=== PATIENT | male | born 2000 | race Caucasian/White ===

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

== ENCOUNTER 2018-09-08 19:11 | Emergency (ER) | payer BC ==
[2018-09-08 19:57] VITALS: BP 127/67
[2018-09-08] MEDS ORDERED: Tetracaine 0.5% OPTH.SOL 4 ML* 1 DROP BTL LEFT EYE ONE (20:20)
--- NOTE | 2018-09-08 20:20 | ED ---
Throat Pain/Nasal Congestion - HPI Summary HPI Summary: pt presents to the for evaluation of his left eye pain. he states that he feels like he has a piece of wood in it. he is not very specific of when this happened. he states that he thinks it happened at work then he said i don't know. he feels like his td is up to date. he denies any blurry vision. - History of Current Complaint Chief Complaint: UCEye Hx Obtained From: Patient Onset/Duration: Sudden Onset Severity: Moderate Associated Signs And Symptoms: Positive: FB Sensation - Allergies/Home Medications Allergies/Adverse Reactions: Allergies Allergy/AdvReac Type Severity Reaction Status Date / Time No Known Allergies Allergy Verified 09/08/18 19:52 Home Medications: Home Medications Acne Med 1 tab DAILY 09/08/18 [History Confirmed 09/08/18] PMH/Surg Hx/FS Hx/Imm Hx Previously Healthy: Yes Respiratory History: Reports: Hx Asthma - as child Infectious Disease History: No Infectious Disease History: Denies: Traveled Outside the [place] in Last 30 Days - Social History Alcohol Use: Occasionally Substance Use Type: Reports: None Smoking Status (MU): Never Smoked Tobacco Review of Systems Constitutional: Negative Positive: Photophobia, Erythema, Other - pain left eye. Negative: Blurred Vision, Diplopia, Drainage Negative: Sore Throat, Ear Ache Negative: Chest Pain Negative: Cough Negative: Vomiting, Diarrhea, Nausea Negative: hematuria Negative: Rash Negative: Syncope Psychological: Normal All Other Systems Reviewed And Are Negative: No Physical Exam Triage Information Reviewed: Yes Vital Signs On Initial Exam: Initial Vitals Temp Pulse Resp BP Pulse Ox 98.7 F 75 16 127/67 99 09/08/18 19:52 09/08/18 19:52 09/08/18 19:52 09/08/18 19:52 09/08/18 19:52 Vital Signs Reviewed: Yes Appearance: Positive: No Pain Distress, Well-Nourished, Pain Distress Skin: Positive: Warm, Dry Eyes: Positive: FAREED, Conjunctiva Inflammed, Other: - pt is keeping his left eye closed. Neck: Positive: Supple, Nontender Respiratory/Lung Sounds: Positive: Clear to Auscultation, Breath Sounds Present Cardiovascular: Positive: Normal, RRR Abdomen Description: Positive: Nontender, Soft Bowel Sounds: Positive: Present Musculoskeletal: Positive: Normal, Strength/ROM Intact Neurological: Positive: Normal, Sensory/Motor Intact, Alert, Oriented to Person Place, Time, CN Intact II-III Psychiatric: Positive: Normal AVPU Assessment: Alert Diagnostics - Vital Signs Vital Signs Temp Pulse Resp BP Pulse Ox 09/08/18 19:52 98.7 F 75 16 127/67 99 - Laboratory Lab Statement: Any lab studies that have been ordered have been reviewed, and results considered in the medical decision making process. EENT Course/Dx - Course Course Of Treatment: pt ptesents to the for evaluation of his left eye. he states it feels like there is wood in it. his left eye was numbed with tetracaine. after good topical anesthetic, I fluoresceined his left ey. there was a corneal abrasion from 11-12p. his eyelid was everted. there was a small brown amanda that was removed. the eye was irrigated with the remainder of the tetracaine. he was feeling much better. erythromycin oph oinment was applied. a rx for abx ointment was sent to his pharmacy. he was instructed to f/u with an eye doctor tomorrow. he was given a referral. he was instructed that if he could not get in with the referral he should go to [facility] and see the frame sample and pattern supervisor. he voiced understanding. he was further encouraged to take tyelnol and motrin for pain. - Diagnoses Provider Diagnoses: Corneal abrasion, left Discharge - Sign-Out/Discharge Documenting (check all that apply): Patient Departure All imaging exams completed and their final reports reviewed: No Studies - Discharge Plan Condition: Stable Disposition: HOME Prescriptions: Erythromycin OPTH OINT* [Erythromycin 0.5% OPTH OINT*] 1 applic LEFT EYE QID #1 ophth.oint Patient Education Materials: Corneal Abrasion (DC) Forms: *Work Release Referrals: Almaz Valero MD [Primary Care Provider] - Juan Knapp MD [Medical Doctor] - Additional Instructions: It is imperative that you follow up with an eye doctor tomorrow. if you cannot get in to see Dr. Knapp tomorrow in [place], please go see an frame sample and pattern supervisor. return if worse or any new symptoms. you may take tylenol and motrin for pain. - Billing Disposition and Condition Condition: STABLE Disposition: Home
[2018-09-08] MEDS ORDERED: Fluorescein Sodium TOPICAL* 1 MG TEST STRIP OPHTHALMIC ONE (20:21)
[2018-09-08] MEDS ORDERED: Erythromycin OPTH OINT* APPLIC OINT LEFT EYE ONE ×2 (20:43→20:51)
== END 2018-09-08 21:12 | disposition home or self-care (01) ==
LOC: UCCORT 19:11
DX: T15.02XA Foreign body in cornea, left eye, initial encounter (principal); S00.252A Superficial foreign body of left eyelid and periocular area, initial encounter; X58.XXXA Exposure to other specified factors, initial encounter; Y92.9 Unspecified place or not applicable
CPT/HCPCS: 65220; 99212; A9270-GY; G0463